=== PATIENT | female | born 1965 | race Caucasian/White ===

== ENCOUNTER → 2016-07-15 | Outpatient (CLI) | payer BC ==
--- NOTE | 2016-07-16 15:28 | KCIC ---
PROCEDURE Bilateral screening mammogram HISTORY 50-year-old female presents for annual screening mammography. COMPARISON August 09, 2009. FINDINGS Bilateral digital screening mammograms are obtained with CAD. The breasts are almost entirely fatty (tissue density A). No dominant suspicious mass, suspicious microcalcifications, or architecture distortion is identified in either breast. A low-lying lymph node is re-demonstrated on the left. IMPRESSION Benign finding. Recommend screening mammogram in 1 year. BI-RADS category 2: Benign findings The patient information was entered into a reminder system with a target due date for the next mammogram. Mammography is not 100% sensitive in detecting breast cancer. Therefore, a self breast exam and a clinical breast exam are very important. A negative mammogram does not negate a clinically suspicious finding and should not result in a delay in biopsying a clinically suspicious abnormality. Electronically signed by: Bhavna Healy (Jul 16, 2016 15:27:00)
== END | disposition home or self-care (01) ==
LOC: KCIC MAMMO 14:51
PROVIDERS: ATTEND Family Medicine
DX: Z12.31 Encounter for screening mammogram for malignant neoplasm of breast (principal)
CPT/HCPCS: G0202; 77067

== ENCOUNTER → 2017-08-21 | Outpatient (CLI) | payer BC | END | disposition home or self-care (01) | LOC: KCIC MAMMO 14:50 | DX: Z12.31 Encounter for screening mammogram for malignant neoplasm of breast (principal) | CPT/HCPCS: 77063; 77067 ==

== ENCOUNTER → 2021-08-28 | Outpatient (CLI) | payer BC ==
--- NOTE | 2021-08-28 16:22 | KCIC ---
Bilateral digital screening mammograms with 3-D tomosynthesis: Reason for examination: Routine screening. Comparison is made to previous studies dated back to 08/09/2009. Bilateral mammograms in CC and oblique projections were obtained with 2-D imaging and 3-D tomosynthes is imaging on a [employer] unit and reviewed on the workstation. Interpretation was made with the benefit of CAD. The skin and nipples show no abnormalities. No abnormal axillary lymph nodes are seen. The breast par enchyma is predominantly fatty. (Breast density: Category A.) There continues to be a small nodule co nsistent with an intramammary lymph node at the 2:00 C position of the left breast. There are no new dominant masses, suspicious calcifications or architectural distortion. Impression: No evidence of malignancy. Recommend routine screening. BI-RAD Category 2: Benign. "Our facility is accredited by the [employer] Mammography Program." This patient's information has been entered into a reminder system for the patient to be notified wit h the results of her examination and a target date for the next mammogram. Electronically signed by: Juli Montalvo MD (08/28/2021 4:20 PM) [id number]
== END ==
LOC: KCIC MAMMO 15:12
PROVIDERS: ATTEND Family Medicine
DX: Z12.31 Encounter for screening mammogram for malignant neoplasm of breast (principal)
CPT/HCPCS: 77063; 77067